=== PATIENT | male | born 1945 | race Caucasian/White ===

== ENCOUNTER 2016-11-21 15:53 | Inpatient (IN) | payer MEDICARE, BC ==
[~2016-11-21 15:53] MED LIST: ALLOPURINOL300 M1 PO; ANTACID PO; ASPIR 8181 M1 PO; ASPIR 8181 MG; ATIVAN0.5 M1 PO; CARBIDOPA-LEVO E1 EA PO; CENTRUM SPECIA1 EACH PO; FISH OIL PO; FLAGYL500 M1 PO; LEVAQUIN750 M1 PO; MAGNESIUM400 M2 PO; MOTRIN800 MG PO; MULTIVITAMIN1 TAB; NEURONTIN300 M1 PO; NORCO 5-325 TA1 EACH PO; SIMVASTATIN40 M1 PO; SINEMET CR 25-1 EACH PO; SKELAXIN800 MG PO; SLEEP AID25 M1 PO; TYLENOL EXTRA500 M1 PO; TYLENOL PM EX-S1 TAB
[2016-11-21] MEDS ORDERED: COLACE100 M1 PO (19:56)
[2016-11-21] MEDS ORDERED: MIRALAX17 G2 PO (19:56)
[2016-11-21] MEDS ORDERED: PRILOSEC OTC20 M1 PO (19:57)
[2016-11-21] MEDS ORDERED: NORCO 5-325 TA1 EACH PO (19:58)
[2016-11-22 07:04] LABS: ALBUMIN 2.6 g/dl (3.5-5.0); ALKALINE PHOSPHATASE 108 U/L (33-138); ALT/SGPT 63 U/L (12-78); ANION GAP 15 mmol/L (0-20); AST/SGOT 71 U/L (10-40); BILIRUBIN,TOTAL 0.6 mg/dl (0.0-1.5); BLOOD UREA NITROGEN 15 mg/dl (6-24); CALCIUM 11.1 mg/dl (8.5-10.5); CARBON DIOXIDE-VENOUS 24 mmol/L (22-32); CHLORIDE 103 mmol/l (96-110); CREATININE 1.15 mg/dl (0.60-1.30); GLUCOSE 110 mg/dL (70-110); SODIUM 138 mmol/L (135-145); eGFR VALUE FOR BLACK 74 mL/Min
[2016-11-23 04:43] LABS: BASO % 0.4 % (0-2); EOS % 2.1 % (0-7); EOSINOPHIL ABSOLUTE COUNT 0.1 tho/cmm (0.0-0.7); HCT-HEMATOCRIT 34.3 % (36.0-53.5); HGB-HEMOGLOBIN 11.5 gm/dl (13.5-17.0); LYMPH % 29.2 % (20-45); LYMPH ABSOLUTE COUNT 0.7 tho/cmm (0.8-4.5); MCH (MEAN CORPUSCULAR HGB) 32.8 pg (28.0-32.0); MCHC MEAN CORPUSCULAR HGB CONC 33.5 % (32.0-36.0); MCV (MEAN CELL VOLUME) 97.7 fl (82.0-96.0); MEAN PLATELET VOLUME 11.9 cmc (9.4-12.4); MONO % 27.5 % (0-12); MONOCYTE ABSOLUTE COUNT 0.7 tho/cmm (0.0-1.2); NEUTROPHILS % 40.8 % (40-80); PLATELET COUNT 67 tho/cmm (150-450); RED BLOOD COUNT 3.51 mil/cmm (4.40-5.70); RED CELL DISTRIBUTION WIDTH 15.3 % (12.4-16.4); WHITE BLOOD COUNT 2.4 tho/cmm (4.0-10.0)
[2016-11-23 04:48] LABS: ALB/GLOB RATIO 1.1 (0.8-2.0); ALBUMIN 2.6 g/dl (3.5-5.0); ALKALINE PHOSPHATASE 111 U/L (33-138); ALT/SGPT 61 U/L (12-78); ANION GAP 16 mmol/L (0-20); AST/SGOT 76 U/L (10-40); BILIRUBIN,TOTAL 0.6 mg/dl (0.0-1.5); BLOOD UREA NITROGEN 17 mg/dl (6-24); CALCIUM 11.5 mg/dl (8.5-10.5); CARBON DIOXIDE-VENOUS 22 mmol/L (22-32); CHLORIDE 102 mmol/l (96-110); CREATININE 1.31 mg/dl (0.60-1.30); GLUCOSE 82 mg/dL (70-110); POTASSIUM 4.1 mmol/L (3.7-5.1); SODIUM 136 mmol/L (135-145); eGFR VALUE FOR BLACK 63 mL/Min
[2016-11-24 05:08] LABS: BASO % 0.3 % (0-2); HCT-HEMATOCRIT 33.2 % (36.0-53.5); HGB-HEMOGLOBIN 11.2 gm/dl (13.5-17.0); IMMATURE GRANULOCYTES ABSOLUTE 0.01 tho/cmm (0-0.03); IMMATURE GRANULOCYTES PERCENT 0.3 % (0-0.3); LYMPH % 36.6 % (20-45); LYMPH ABSOLUTE COUNT 1.3 tho/cmm (0.8-4.5); MCH (MEAN CORPUSCULAR HGB) 32.7 pg (28.0-32.0); MCHC MEAN CORPUSCULAR HGB CONC 33.7 % (32.0-36.0); MCV (MEAN CELL VOLUME) 97.1 fl (82.0-96.0); MEAN PLATELET VOLUME 11.7 cmc (9.4-12.4); MONO % 25.9 % (0-12); MONOCYTE ABSOLUTE COUNT 0.9 tho/cmm (0.0-1.2); NEUTROPHIL ABSOLUTE COUNT 1.3 tho/cmm (1.6-8.0); NEUTROPHIL-AUTOMATED 1.3 tho/cmm (1.6-8.0); NEUTROPHILS % 36.9 % (40-80); PLATELET COUNT 64 tho/cmm (150-450); RED BLOOD COUNT 3.42 mil/cmm (4.40-5.70); RED CELL DISTRIBUTION WIDTH 15.3 % (12.4-16.4); WHITE BLOOD COUNT 3.4 tho/cmm (4.0-10.0)
[2016-11-24 05:39] LABS: ALB/GLOB RATIO 1.2 (0.8-2.0); ALBUMIN 2.8 g/dl (3.5-5.0); ALKALINE PHOSPHATASE 116 U/L (33-138); ALT/SGPT 53 U/L (12-78); ANION GAP 19 mmol/L (0-20); AST/SGOT 71 U/L (10-40); BILIRUBIN,TOTAL 0.7 mg/dl (0.0-1.5); BLOOD UREA NITROGEN 17 mg/dl (6-24); CALCIUM 11.5 mg/dl (8.5-10.5); CARBON DIOXIDE-VENOUS 20 mmol/L (22-32); CHLORIDE 104 mmol/l (96-110); CREATININE 1.19 mg/dl (0.60-1.30); GLUCOSE 84 mg/dL (70-110); POTASSIUM 4.8 mmol/L (3.7-5.1); SODIUM 138 mmol/L (135-145); eGFR VALUE FOR BLACK 71 mL/Min
== END 2016-11-25 17:03 | disposition hospice, inpatient (51) | DRG 840 ==
LOC: 5WF 15:53
PROVIDERS: Internal Medicine Hematology & Oncology; Nurse Practitioner; ADMIT Internal Medicine Hematology & Oncology
DX: C83.30 Diffuse large B-cell lymphoma, unspecified site (principal); D61.810 Antineoplastic chemotherapy induced pancytopenia; E44.0 Moderate protein-calorie malnutrition; D69.59 Other secondary thrombocytopenia; E83.52 Hypercalcemia; K56.7 Ileus, unspecified; G89.3 Neoplasm related pain (acute) (chronic); T45.1X5A Adverse effect of antineoplastic and immunosuppressive drugs, initial encounter; R74.0 Nonspecific elevation of levels of transaminase and lactic acid dehydrogenase [LDH]; R41.82 Altered mental status, unspecified; K59.00 Constipation, unspecified; Z51.5 Encounter for palliative care; K21.9 Gastro-esophageal reflux disease without esophagitis; M19.90 Unspecified osteoarthritis, unspecified site; Z66 Do not resuscitate; Z68.25 Body mass index [BMI] 25.0-25.9, adult
CPT/HCPCS: J1100; J1170; J1940; J2270; J3480; J3489